=== PATIENT | male | born 1955 | race African-American/Black ===

== ENCOUNTER 2019-03-28 08:06 | Day surgery (SDC) | payer OTHER ==
[2019-03-25 15:37] VITALS: BMI 27.2
[2019-03-28 10:44] VITALS: TEMP 97.8
[2019-03-28 11:20] VITALS: BP 137/82; PULSE 81
== END 2019-03-28 11:30 | disposition home or self-care (01) ==
LOC: JASU-ENDO 08:06
PROVIDERS: ATTEND Internal Medicine Gastroenterology
PROC: 0DJD8ZZ Inspection of Lower Intestinal Tract, Via Natural or Artificial Opening Endoscopic (ICD-10-PCS; principal; 2019-03-28 09:45)
DX: Z12.11 Encounter for screening for malignant neoplasm of colon (principal); K57.30 Diverticulosis of large intestine without perforation or abscess without bleeding; K64.8 Other hemorrhoids; I10 Essential (primary) hypertension; E78.5 Hyperlipidemia, unspecified; E11.9 Type 2 diabetes mellitus without complications
CPT/HCPCS: 82962